=== PATIENT | female | born 1980 | race Caucasian/White ===

== ENCOUNTER 2016-07-23 23:41 | Emergency (ER) | payer SELFPAY ==
[~2016-07-23 23:41] MED LIST: ATIVAN0.5 MG PO; BACTRIM DS TAB1 EAC2 PO; CALTRATE-600/VI1 TAB; COMPAZINE10 M PO; KLONOPIN0.5 M1 PO; KLONOPIN1 M1 PO; LEXAPRO10 MG; NO MEDS; PRENATAL1 TAB; SUBOXONE PO; TOBREX3.5 G1 EACH EYE; XANAX XR2 MG PO; XANAX2 MG PO
[2016-07-24] MEDS ORDERED: VALIUM5 M1 PO (00:03)
[2016-07-24] MEDS ORDERED: AMOXICILLIN875 M1 PO (00:40)
== END 2016-07-24 01:03 ==
LOC: EDMED 23:41
DX: K02.9 Dental caries, unspecified (principal); K05.00 Acute gingivitis, plaque induced; F32.9 Major depressive disorder, single episode, unspecified; F41.9 Anxiety disorder, unspecified; F17.200 Nicotine dependence, unspecified, uncomplicated; Z79.899 Other long term (current) drug therapy